=== PATIENT | male | born 1990 | race Caucasian/White ===

== ENCOUNTER 2016-12-15 01:38 | Emergency (ER) | payer SELFPAY ==
[~2016-12-15] VITALS: Ht 172.7 cm; Wt 59.0 kg
[2016-12-15 01:39] VITALS: BP 121/71; PULSE 78; RESP 16; TEMP 98.8; O2SAT 99
[2016-12-15] MEDS ORDERED: CLIN150 PO (02:20)
[2016-12-15] MEDS ORDERED: HYDR-3533 PO ×2 (02:20→02:24)
--- NOTE | 2016-12-15 02:24 | PD ---
HPI Chief Complaint: Oral / Dental Pain or Problem Time Seen by Provider: 02:20 Travel History International Travel<30 days: No Contact w/Intl Traveler<30days: No Traveled to known affect area: No History of Present Illness HPI 26-year-old white male presents emergency Department with complaints of right lower jaw pain and swelling. He states that his tooth started to bother him on Wednesday. He denies any fever or chills. No ear pain or sore throat. No shortness of breath. PFSH Past Medical History Medical History: Denies Significant Hx Tetanus Vaccination: < 5 Years Influenza Vaccination: No Past Surgical History Surgical History: No Previous Surgery Social History Alcohol Use: Yes (OCC) Tobacco Use: Yes (1 PPD) Substance Use: No Allergies-Medications (Allergen,Severity, Reaction): Coded Allergies: No Known Allergies (Unverified , 12/15/16) Reported Meds & Prescriptions Reported Meds & Active Scripts Active No Active Prescriptions or Reported Medications Review of Systems Except as stated in HPI: all other systems reviewed are Neg Physical Exam Narrative GENERAL: Well-developed, well-nourished in no acute distress. Nontoxic appearing. HEAD: Normocephalic, mild swelling to the right mandible EYES: Pupils equal round and reactive. Extraocular motions intact. No scleral icterus. No injection or drainage. ENT: TMs clear without erythema. The external auditory canals clear. Nose: clear . Posterior pharynx is pink and moist. No tonsillar edema or exudate. Uvula midline. Airway patent. Patient has poor dentition. He has a very large dental carry with gingival swelling, erythema and tenderness to tooth #30 NECK: Trachea midline.Supple, nontender, moves head freely. No central bony tenderness or spasm. CARDIOVASCULAR: Regular rate and rhythm without murmurs, gallops, or rubs. RESPIRATORY: Clear to auscultation. Breath sounds equal bilaterally. No wheezes , rales, or rhonchi. GASTROINTESTINAL: Abdomen soft, non-tender, nondistended. No hepato-splenomegaly , or palpable masses. No guarding. EXTREMITIES: No clubbing, cyanosis, or edema. No joint tenderness, effusion, or edema noted. BACK: Nontender without deformity or crepitance. No flank tenderness. Data Data Last Documented VS Vital Signs Date Time Temp Pulse Resp B/P Pulse Ox O2 Delivery O2 Flow Rate FiO2 12/15/16 01:39 98.8 78 16 121/71 99 Room Air Orders Clindamycin Inj (Cleocin Inj) (12/15/16 02:30) Acetamin-Hydrocod 325-5 Mg ([place] 5-325 (12/15/16 02:30) MDM Medical Decision Making Medical Screen Exam Complete: Yes Emergency Medical Condition: Yes Medical Record Reviewed: Yes (thank you) Differential Diagnosis MDM: Moderate Differential diagnoses: Dental abscess, dental caries, osteitis, cellulitis Narrative Course Patient's given clindamycin 600 mg IM. Lortab 5 milligram by mouth. This is dental abscess Diagnosis Primary Impression: Dental abscess Patient Instructions: Narcotic given in the ED, General Instructions Additional Instructions: Rest. Saltwater gargles. [place] oil on cotton balls. 3 Advil every 6 hours. Clindamycin and Lortab. follow-up with a dentist as soon as possible. And return to the ER if any problems. Med/Other Pt SpecificInfo: Prescription(s) given Scripts Hydrocodone-Acetaminophen (Lortab)5-325 Mg Tab1 Tab PO Q8HR PRN (PAIN) #12 TAB Prov:Deidra Ugalde MD 12/15/16 Clindamycin (Cleocin)150 Mg Rie726 Mg PO Q6H #80 CAP Prov:Deidra Ugalde MD 12/15/16 Disposition: 01 DISCHARGE HOME Condition: Stable Dami Stringer Dec 15, 2016 02:24
[2016-12-15] MEDS ORDERED: CLINDAMYCIN PHOS 600 MG/4 ML VIAL IM ONE (02:30)
[2016-12-15] MEDS ORDERED: ACETAMINOPHEN/HYDROcodone 325 MG/5 MG TAB PO ONE (02:30)
== END 2016-12-15 02:51 | disposition home or self-care (01) ==
LOC: NEPK 01:38
DX: K04.7 Periapical abscess without sinus (principal); F17.200 Nicotine dependence, unspecified, uncomplicated
CPT/HCPCS: 96372

== ENCOUNTER 2017-08-28 15:56 | Emergency (ER) | payer SELFPAY ==
[~2017-08-28] VITALS: Ht 172.7 cm; Wt 56.8 kg
[~2017-08-28 15:56] MED LIST: CLIN150 PO; HYDR-3533 PO
[2017-08-28 16:16] VITALS: BP 127/73; PULSE 79; RESP 16; TEMP 99.1; O2SAT 99
[2017-08-28] MEDS ORDERED: PENI500T PO (16:31)
[2017-08-28] MEDS ORDERED: TRAM50TA PO (16:31)
[2017-08-28] MEDS ORDERED: CHLO.12%30 SWISH-SPIT (16:31)
--- NOTE | 2017-08-28 16:31 | PD ---
HPI Chief Complaint: Oral / Dental Pain or Problem Time Seen by Provider: 16:21 Travel History International Travel<30 days: No Contact w/Intl Traveler<30days: No Traveled to known affect area: No History of Present Illness HPI Patient is a 27-year-old male presenting to him or to evaluation of dental pain. Patient states the onset was gradual, it started 2 days ago. It started getting progressively more swollen and tender to the left lower jaw yesterday and throughout the night. He states his pain is 8 out of 10 and describes as throbbing. Patient is not taking any medication to alleviate the pain. He states that he try to get in with the dentist but was unable to. He denies any significant Past medical history, there are no alleviating factors. [facility] Past Medical History Medical History: Denies Significant Hx Past Surgical History Surgical History: No Previous Surgery Social History Alcohol Use: Yes (OCC) Tobacco Use: Yes (1 PPD) Substance Use: No Allergies-Medications (Allergen,Severity, Reaction): Coded Allergies: No Known Allergies (Unverified Adverse Reaction, Unknown, 08/28/17) Reported Meds & Prescriptions Reported Meds & Active Scripts Active No Active Prescriptions or Reported Medications Review of Systems Except as stated in HPI: all other systems reviewed are Neg HENT: Positive: Dental Difficulties Skin: Positive Other (edema) Physical Exam Narrative GENERAL: Well-developed, well-nourished, alert male. Resting in no acute distress. SKIN: Warm and dry. HEAD: Normocephalic. EYES: No scleral icterus. No injection or drainage. MOUTH: Mucous membranes moist, no lesions, tongue and gums appear normal. Multiple broken and missing teeth, multiple dental caries noted throughout mouth. Right lower jaw is edematous, no erythema, fluctuance noted. NECK: Supple, trachea midline. No JVD or lymphadenopathy. CARDIOVASCULAR: Regular rate and rhythm without murmurs, gallops, or rubs. RESPIRATORY: Breath sounds equal bilaterally. No accessory muscle use. GASTROINTESTINAL: Abdomen soft, non-tender, nondistended. MUSCULOSKELETAL: No cyanosis, or edema. BACK: Nontender without obvious deformity. No CVA tenderness. Data Data Last Documented VS Vital Signs Date Time Temp Pulse Resp B/P (MAP) Pulse Ox O2 Delivery O2 Flow Rate FiO2 08/28/17 16:16 99.1 79 16 127/73 (91) 99 MDM Medical Decision Making Medical Screen Exam Complete: Yes Emergency Medical Condition: Yes Interpretation(s) Vital Signs Date Time Temp Pulse Resp B/P (MAP) Pulse Ox O2 Delivery O2 Flow Rate FiO2 08/28/17 16:16 99.1 79 16 127/73 (91) 99 Differential Diagnosis Abscess versus dentalgia versus dental caries versus cellulitis versus other Narrative Course Patient is a 27-year-old male presenting to emergency department evaluation of left lower jaw swelling and a toothache. Patient's vital signs are stable. There is no area of fluctuance to drain specifically. Patient will be started on antibiotics empirically. He was advised to return to emergency department should he have increased swelling or if he noticed the area began to localize. He was encouraged to apply warm compresses, gargle with prescribed mouthwash and take antibiotics as directed. He was encouraged to follow-up with his dentist. He was understanding of these instructions. Patient is stable for discharge. Diagnosis Primary Impression: Dental abscess Referrals: Dentist 1 week Patient Instructions: Dental Abscess (ED), General Instructions Additional Instructions: Follow-up with a dentist in 1 week Return to emergency department for any new or worsening symptoms as discussed Complete full course of antibiotics as prescribed Med/Other Pt SpecificInfo: Prescription(s) given Scripts Tramadol (Tramadol) 50 Mg Tab 50 MG PO Q6H Y for PAIN, #6 TAB 0 Refills Prov: Rashmi Jimenez 08/28/17 Chlorhexidine Gluconate (Mouth) Liq (Chlorhexidine Gluconate (Mouth) Liq) 0.12% Soln 15 ML SWISH-SPIT BID for 10 Days, #300 ML 0 Refills Prov: Rashmi Jimenez 08/28/17 Penicillin V Potassium (Penicillin V Potassium) 500 Mg Tab 500 MG PO Q8H for Infection for 10 Days, #30 TAB 0 Refills Prov: Rashmi Jimenez 08/28/17 Disposition: 01 DISCHARGE HOME Condition: Stable Rashmi Jimenez Aug 28, 2017 16:31
== END 2017-08-28 16:38 | disposition home or self-care (01) ==
LOC: PHEFT 15:56
DX: K04.7 Periapical abscess without sinus (principal); F17.200 Nicotine dependence, unspecified, uncomplicated
CPT/HCPCS: 99284